=== PATIENT | female | born 1940 | race Caucasian/White ===

== ENCOUNTER 2016-03-23 02:30 | Observation (INO) | payer OTHER, MEDICARE ==
[~2016-03-23] VITALS: Ht 162.6 cm; Wt 117.9 kg
[~2016-03-23 02:30] MED LIST: AUGMENTIN 875-1 EACH PO; LEVEMIR100 UNIT/1 SC; NOVOLOG100 UNIT/2 SC; TYLENOL #31 TAB PO
--- NOTE | 2016-03-23 16:42 | Operative Report ---
Operative/Inv Procedure Report Surgery Date: 03/23/16 Name of Procedure: Laparoscopic cholecystectomy Pre-Operative Diagnosis: Acute cholecystitis with abscess status post percutaneous drainage Post-Operative Diagnosis: Same Estimated Blood Loss: 50ml to 100ml Surgeon/Operations Mgr: AAKASH HOANG,ARIANA Martin/Mateo CM Anesthesia: general endotracheal tube Drains: 15 Estonian Marcos-Hart Specimens: Gallbladder Microbiology: Purulence for culture Operative Indication: 76-year-old woman who presented 2 months ago with pericholecystic abscess status post percutaneous drainage. She now presents for cholecystectomy. Operative/Procedure Note Note: After consent she is brought to the operating room laid supine. Gen. anesthesia was obtained and her abdomen was prepped and draped. The skin above the umbilicus was after local anesthesia transverse incision made sharply. We came down the fascia and grasped with Chaparro's. A fasciotomy created sharply. Stay sutures placed and a blunt Sanchez port was placed. Pneumoperitoneum achieved. 3, 5 mm ports were placed in the epigastrium and right upper quadrant after local anesthesia was instilled and under direct vision the camera. She's placed in reverse Trendelenburg and rotated towards the left. There was an inflammatory tract where the percutaneous drain had been placed previously. He was divided with cautery. Right upper quadrant was still chronically inflamed and the gallbladder was not visible. The liver showed signs of early cirrhosis, likely Brian. There was an inflammatory mass of the liver edge. We presume this was where the gallbladder was. We painstakingly came through dense adhesions with cautery and blunt dissection. Eventually came down to the gallbladder wall. It was able to be grasped. Gently peeled the chronic inflammatory rind around it off. The gallbladder was filled with purulence. There is also an abscess cavity laterally. A specimen sent for culture. After about an hour of dissection were able to get into a less inflamed area. The area where there was an abscess was associated with complete loss of the wall laterally. There is visible large stone. We got down to the infundibulum and the artery was identified medial and its normal anatomic position. It was circumferentially dissected and the better visualize the triangle clipped ligated. We then Ribble to see that the cystic duct was coursing posteriorly folded over on the gallbladder. We developed a plane around it and dissected it. The triangle was then cleared. Once the duct was isolated it was doubly ligated with clips. The gallbladder is removed from the fossa electrocautery. The mid central portion could not be taken off of the liver bed due to severe inflammatory changes there. The remainder the gallbladder was removed. An placed in Endo Catch bag and cinched up. There are multiple stones which were also extracted. The left over mucosa on the back wall was cauterized. Right upper quadrant was and suction irrigated normal saline. I put a 15 Estonian Marcos-Hart drain the lateral port site. It was placed in liver bed and secured to the skin with suture. The ports were removed. In order to deliver the gallbladder the fascial incision to be a lengthened to approximately 3 cm. Passed the specimen off the field. The fascia was closed with a running 0 Vicryl suture. Skin incisions closed with 4-0 Vicryl. Sterile dressings were applied. Sponge and needle counts are correct CC: SADA HOANG,UTE Hassan
--- NOTE | 2016-03-23 19:34 | Admission Core Measures ---
Admission Meds I reviewed the following Meds: Current Medications Sig/Chandu Start time Last Medication Dose Stop Time Status Admin Cefazolin Sodium 2,000 MG ONCE 03/23 0000 NR (Kefzol-Ancef Inj) 03/23 2359 Acute Coronary Syndrome Inclusion Criteria ACS Diagnosis No Inpatient Core Measures LDL Reminder: If No, please order W/I first 24hr of stay Congestive Heart Failure Inclusion Criteria CHF Diagnosis No Cerebrovascular accident Inclusion Criteria CVA/TIA Diagnosis No Inpatient Core Measures Bedside Swallow Eval Reminder: If BSE failed, place ST order Antithrombotic Reminder: Order Antithrombotic Medication by end of day 2 Antithrombotic Reminder: Document Reason Antithrombotic Not ordered by end of day 2 AFIB/Flutter Reminder: If Present, add to problem list AFIB/Flutter Reminder: Order Anticoag Medication for pts with AFIB/Flutter Atherosclerosis Reminder: If Present, add to problem list LDL Reminder: If No, please order W/I first 24hr of stay PT Order Reminder: If No, please order Venous thromboembolism Inpatient Core Measures VTE Risk Factors: Age > 40, Obesity, Surgery VTE Prophylaxis Ordered Inpt Mech & Pharm No Mech VTE prophylaxis d/t No contraindications No VTE Pharm Prophylaxis d/t No contraindications Inclusion Criteria - Per Current guidelines, there needs to be overlap - treatment for the first 5 days of Warfarin therapy. - Parenteral Anticoagulation (IV or SC) needs to be - given along with Warfarin therapy. VTE Diagnosis No VTE Type NONE VTE Confirmed by (Test) NONE Problem List As ranked by this Provider includes Assessment & Plan 1. Cholelithiasis 2. S/P laparoscopic cholecystectomy HOME MEDS Home Med List Insulin Aspart (Novolog) 100 UNIT/ML VIAL 16-20 UNITS SC TIDAC DM (Reported) Insulin Detemir (Levemir) 100 UNIT/ML VIAL 30 UNIT SC QPM DM (Reported)
[2016-03-23 20:30] VITALS: BP 138/72
--- NOTE | 2016-03-23 20:30 | NUR ---
PT ARRIVED TO FLOOR FROM PACU VIA STRETCHER. DAUGHTER AT BEDSIDE. PT DENIES ANY PAIN AT THIS TIME. VSS, NO S/S DISTRESS. ORIENTED TO ROOM AND CALL LIGHT. DEON DRAIN IN PLACE BUT DRESSING COMPLETELY SATRUATED WTIH SEROUSANGUENOUS DRAINAGE. PER TOI MCCORMACK, WHO WAS NOTIFIED, CHANGE AND REINFORCE DRESSING NEEDED. DRESS CHANGED. PT C/O "GURGLING IN MY CHEST", TOI MCCORMACK MADE AWARE. WILL CONTINUE TO MONITOR.
--- NOTE | 2016-03-23 22:27 | PN- General Surgery ---
Subjective Subjective: poc s/p lap maribell no major complaints now denies cp, sob, no n+v with ice chips Objective Vital Signs and I&Os cv: rrr lungs: clear abd: soft drsain site drsg saturated with serous drainage +bs, other drsgs dry ext: warm, distal lcms intact Assessment/Plan Assessment/Plan surgical stable unable to go home tonight due to safety concerns plan 23hr obv iv abx hep sq/alps for dvt prophylaxis pain meds advance diet as perez plan for home d/c angi Core Measures/Miscellaneous Venous Thromboembolism VTE Risk Factors: Age > 40, Obesity, Surgery VTE Contraindications: No Contraindications VTE Prophylaxis Ordered Inpt Mech & Pharm VTE Diagnosis: No VTE Type: NONE VTE Confirmed by (Test): NONE Beta Olivia Is Beta Olivia a Home Med? No Antibiotics Is Patient on Antibiotics? Yes
--- NOTE | 2016-03-23 22:41 | Patient Discharge Instructions ---
Discharge Instructions General Discharge Information You were seen/treated for: cholelithiasis You had these procedures: laparoscopic cholecystectomy Watch for these problems: temp>101.5, increased wound drainage/redness, increased pain No bath, but you may shower: Yes Other wound care: keep wound clean and dry Activity Activity Limited to: Weight bear as tolerated Other activity limits: no strenuous activity Acute Coronary Syndrome Inclusion Criteria At DC or during hospital stay patient has or had the following: ACS DIAGNOSIS No Discharge Core Measures Meds if any: Prescribed or Continued at Discharge Meds if any: NOT Prescribed or Continued at Discharge Congestive Heart Failure Inclusion Criteria At DC or during hospital stay patient has or had the following: CHF DIAGNOSIS No Discharge Core Measures Meds if any: Prescribed or Continued at Discharge Meds if any: NOT Prescribed or Continued at Discharge Cerebrovascular accident Inclusion Criteria At DC or during hospital stay patient has or had the following: CVA/TIA Diagnosis No Discharge Core Measures Meds if any: Prescribed or Continued at Discharge Meds if any: NOT Prescribed or Continued at Discharge Venous thromboembolism Inclusion Criteria VTE Diagnosis No VTE Type NONE VTE Confirmed by (Test) NONE Discharge Core Measures - Per Current guidelines, there needs to be overlap - treatment for the first 5 days of Warfarin therapy. - If discharged on Warfarin prior to 5 days of - overlap therapy, the patient will need to be - assessed for post discharge needs including - *Post discharge parental anticoagulation - *Warfarin and/or parental anticoagulation education - *Follow up date to check INR post discharge At least 5 days overlap therapy as Inpatient No Meds if any: Prescribed or Continued at Discharge Note: Overlap Therapy is Warfarin and Anticoagulant Meds if any: NOT Prescribed or Continued at Discharge
[2016-03-23 22:50] VITALS: BP 166/80
[2016-03-24 00:44] VITALS: BP 160/80
[2016-03-24 02:36] VITALS: BP 160/60
[2016-03-24 04:00] VITALS: BP 160/60
--- NOTE | 2016-03-24 07:35 | PN- General Surgery ---
Subjective Subjective: NAEO. No new c/o. Patient continues to have pain in her right flank near DEON drain. DEON drain remained in place overnight. Tolerating by mouth without nausea vomiting. Has been out of bed and ambulating to bathroom. Voiding. Denies chest pain or shortness of breath. Objective Vital Signs and I&Os Vital Signs Date Time Temp Pulse Resp B/P Pulse O2 O2 Flow FiO2 Ox Delivery Rate 03/24 0400 98.9 93 20 160/60 93 Room Air 03/24 0241 95 Room Air 03/24 0236 99.2 99 20 160/60 98 Nasal 2.0L Cannula 03/24 0044 98.0 98 20 160/80 98 Nasal 2.0L Cannula 03/24 0000 Nasal 2.0L Cannula 03/23 2250 97.8 93 20 166/80 94 Nasal Cannula 03/23 2030 97.5 88 18 138/72 94 Nasal 2.0L Cannula Intake & Output 03/24 0800 03/24 0000 03/23 1600 03/23 0800 03/23 0000 03/22 1600 Intake Total 720 630 Output Total 380 520 Balance 340 110 Intake, IV 600 150 Intake, Oral 120 480 Number 0 Bowel Movements Output, 30 120 Drainage Output, Urine 350 400 Patient 260 lb Weight Physical Exam: General: NAD, comfortable, A&Ox3 Chest: NRD, breathing comfortably in room air. Heart S1S2 normal. Abdomen: soft, nondistended. Appropriately tender to palpation around incisions and DEON drain site. Incisions clean dry and intact. DEON drain in place right upper quadrant with serosanguineous drainage. +Bowel sounds x4 quadrants Ext: No calve swelling/TTP, neurovascularly intact bilateral lower extremities Current Medications: Current Medications Sig/Chandu Start time Last Medication Dose Route Stop Time Status Admin Acetaminophen 1,000 MG .STK-MED ONE 03/23 1400 DC IV 03/23 1401 Cefazolin Sodium 2 GM Q8H 03/23 2230 DC 03/24 N/A 1 UNIT IV 03/24 0659 0529 Cefazolin Sodium 2,000 MG ONCE 03/23 0000 DC IV 03/23 2359 Fentanyl Citrate 250 MCG .STK-MED ONE 03/23 1530 DC IM 03/23 1531 Fentanyl Citrate 250 MCG .STK-MED ONE 03/23 1400 DC IM 03/23 1401 Heparin Sodium 5,000 UNIT Q8 03/23 2199 AC 03/24 (Porcine) SC 0530 Hydromorphone HCl 2 MG .STK-MED ONE 03/23 1935 DC IM 03/23 193 Hydromorphone HCl 2 MG .STK-MED ONE 03/23 1744 DC IM 03/23 174 Hydromorphone HCl 2 MG .STK-MED ONE 03/23 1530 DC IM 03/23 1531 Insulin Aspart 0 TIDAC 03/24 0800 AC SC Insulin Detemir 30 UNITS QPM 03/23 220 AC 03/23 SC 2232 Meperidine HCl 50 MG .STK-MED ONE 03/23 1907 DC IM 03/23 190 Ondansetron HCl 4 MG Q6P PRN 03/23 194 AC IV Oxycodone/ 1 TAB Q4P PRN 03/23 1944 AC 03/24 Acetaminophen PO 0240 Oxycodone/ 2 TAB Q4P PRN 03/23 1944 AC 03/24 Acetaminophen PO 0708 Sodium Chloride 1,000 ML Q13H 03/23 1944 AC 03/23 IV 2151 Assessment/Plan Assessment/Plan 76-year-old female postop day 1 status post laparoscopic cholecystectomy with DEON drain placement. AVSS, patient stable. - Pain control - Diet as tolerated - When necessary Zofran - I/O's - Subcutaneous heparin and Alps for DVT prophylaxis - Out of bed and ambulate - Continue antibiotics - DC home today. Will discuss whether not to DC with the DEON drain with attending - Will discuss plan with attending Core Measures/Miscellaneous Venous Thromboembolism VTE Risk Factors: Age > 40, Obesity, Surgery VTE Contraindications: No Contraindications VTE Prophylaxis Ordered Inpt Mech & Pharm VTE Diagnosis: No VTE Type: NONE VTE Confirmed by (Test): NONE Beta Olivia Is Beta Olivia a Home Med? No Antibiotics Is Patient on Antibiotics? Yes
[2016-03-24] MEDS ORDERED: PERCOCET 5-3251 EACH PO (07:55)
[2016-03-24 08:54] LABS: ABSOLUTE BASOPHIL COUNT 0 /CUMM (0.0-0.2); ABSOLUTE EOSINOPHIL COUNT 0 /CUMM (0.0-0.7); ABSOLUTE GRANULOCYTE CT 23.5 /CUMM (1.4-6.5); ABSOLUTE LYMPH COUNT 1.1 /CUMM (1.2-3.4); ABSOLUTE MONOCYTE COUNT 0.7 /CUMM (0.10-0.60); BASOPHIL % 0.1 % (0.0-2.0); EOSINOPHIL % 0.1 % (0-5); GRANULOCYTE % 92.5 % (42.2-75.2); MEAN CORPUSCULAR HGB CONC 32.9 G/DL (33.0-37.0); MEAN CORPUSCULAR VOLUME 81.9 FL (81.0-99.0); MEAN PLATELET VOLUME 9.2 FL (7.4-10.4); PLATELET COUNT 228 /CUMM (130-400); RBC DISTRIBUTION WIDTH 15.5 % (11.5-14.5); RED BLOOD CELL CT 4.65 /CUMM (4.20-5.40); WHITE BLOOD CELL COUNT 25.4 /CUMM (4.8-10.8)
[2016-03-24 11:26] VITALS: BP 120/80
--- NOTE | 2016-03-24 11:51 | PN- General Surgery ---
Surgical Brief Attending Note Brief Attending Note: doing well. leukocytosis due to stress. cultures from OR without growth. Tolerating diet. D/c drain, fluids and abx. ready for discharge pending social issues with living alone.
== END 2016-03-24 16:00 | disposition home health service (06) ==
LOC: ENRESERVTM → ENRESERVDT → STS 02:30 → PACUH 16:40 → 2NA 18:58 → ENPENDDIS 18:58 → 2NA 21:00
PROVIDERS: Physician Assistant; ADMIT Surgery
DX: K81.0 Acute cholecystitis (principal); E11.319 Type 2 diabetes mellitus with unspecified diabetic retinopathy without macular edema; Z79.4 Long term (current) use of insulin; I10 Essential (primary) hypertension
CPT/HCPCS: 1328; 1425; 1530; 1748; 6030; 87070; 87075; 82436; 87071; 87147; 88304; 88305; 96372; G0378; J0131; J0690; J1644

== ENCOUNTER 2016-03-25 15:15 | Inpatient (IN) | payer OTHER, MEDICARE ==
[~2016-03-25] VITALS: Ht 160 cm; Wt 112.9 kg
[~2016-03-25 15:15] MED LIST changes: +PERCOCET 5-3251 EACH PO
--- NOTE | 2016-03-25 15:20 | NUR ---
BIBA FOR WEAKNESS AND RECTAL BLEEDING. PT DISCHARGED FROM [place] YESTERDAY S/P JOSE JUAN VERA. HAD PLANNED VISITING NURSE VISIT TODAY. VISITING NURSE ARRIVED THIS AFTERNOON. NO ANSWER AT DOOR. DTR UNABLE TO REACH PT ON PHONE. POLICE/EMS CALLED. FORCED ENTRY WAS DONE INTO HOME. PT FOUND ON TOILET, UNABLE TO GET UP ON HER OWN. SOME BLOOD NOTED IN TOILET. UPON ARRIVAL PT ALERT AND ORIENTED X3. IN NO OVERT DISTRESS. PT NOT ABLE TO DESCRIBE EVENTS LEADING UP TO EMS/POLICE ENTERING INTO HOME. PT REFUSING TO ALLOW US TO CARE FOR HER. "I WANT TO GO HOME" STATES SHE IS VERY ANGRY THAT HER DOOR WAS BROKEN DOWN. "THEY DRAGGED ME OFF TOILET". NOTED TO HAVE BRIGHT RED BLOOD ON PANTS. PT WILL NOT ALLOW EXAM
--- NOTE | 2016-03-25 15:34 | ED GENERAL ADULT ---
See Addendum History of Present Illness General Chief Complaint: General Adult Stated Complaint: BIBA FOR RECTAL BLEEDING Source: patient, EMS Exam Limitations: physical impairment Vital Signs & Intake/Output Vital Signs & Intake/Output Vital Signs Date Time Temp Pulse Resp B/P Pulse O2 O2 Flow FiO2 Ox Delivery Rate 03/26 0846 88 18 125/59 99 Room Air 03/25 2055 96.5 95 16 143/64 98 Room Air 03/25 1700 Room Air 03/25 1634 98.0 105 18 170/81 98 Room Air 03/25 1520 110 18 134/99 99 Room Air ED Intake and Output 03/26 0000 03/25 1200 Intake Total 150 Output Total Balance 150 Intake, Oral 150 Allergies Coded Allergies: NO KNOWN ALLERGIES (10/14/15) Reconcile Medications Insulin Aspart (Novolog) 100 UNIT/ML VIAL 16-20 UNITS SC TIDAC DM (Reported) Insulin Detemir (Levemir) 100 UNIT/ML VIAL 30 UNIT SC QPM DM (Reported) Oxycodone HCl/Acetaminophen (Percocet 5-325 MG Tablet) 5 MG-325 MG TABLET 1-2 TAB PO Q4-6 PRN PAIN Triage Nurses Notes Reviewed? yes Onset: Abrupt Duration: day(s): Timing: recent history HPI: 03/25/16 5 PM 76-year-old female presents to the emergency department complaining of I was unable to get up off the toilet and I didn't want to be brought here. The patient states that she was discharged yesterday after a laparoscopic cholecystectomy. She said she went home with home care; the Homecare financial services sales representative was unable to get in today. The patient was on the toilet today and was unable to make it when the doorbell rang. EMS was called when she didn' t answer her phone and they broke down her door and brought her to the emergency department. The patient states she did not want to come. They said they noted some blood in the toilet; the patient is refusing blood work and rectal exam at this time. (RIGO FLYNN DO) Past History Travel History Traveled to [place] past 21 day No Medical History Any Pertinent Medical History? see below for history Neurological: NONE EENT: NONE Cardiovascular: NONE Respiratory: NONE Gastrointestinal: NONE Hepatic: NONE Renal: NONE Musculoskeletal: spinal stenosis Psychiatric: NONE Endocrine: diabetes, obesity Blood Disorders: NONE Cancer(s): NONE DENTURE PROCESSOR/Reproductive: NONE History of MRSA: Yes History of VRE: No History of CDIFF: No Influenza Vaccine: 12/22/15 Surgical History Surgical History: none Psychosocial History What is your primary language Chinese Family History Hx Contributory? No (RIGO FLYNN DO) Review of Systems Review of Systems Constitutional: Denies: fever. EENTM: Reports: no symptoms. Respiratory: Denies: short of breath. Cardiovascular: Denies: chest pain. GI: Denies: abdominal pain. Genitourinary: Reports: no symptoms. Musculoskeletal: Reports: back pain. Skin: Denies: rash. Neurological/Psychological: Reports: no symptoms. Hematologic/Endocrine: Reports: no symptoms. (RIGO FLYNN DO) Physical Exam Physical Exam General Appearance: alert, awake, anxious, mild distress Head: atraumatic, normal appearance Eyes: Bilateral: normal appearance, PERRL, EOMI. Ears, Nose, Throat: normal pharynx Neck: normal inspection, supple, limited range of motion Respiratory: no respiratory distress Cardiovascular: regular rate/rhythm Peripheral Pulses: 4+ radial (R), 4+ radial (L) Gastrointestinal: soft, non-tender Rectal: heme positive stool, rectal prolase Back: decreased range of motion Extremities: pedal edema Neurologic/Psych: awake, alert, oriented x 3 Skin: ulceration right gluteal fold Comments: The patient has rectal prolapse with a blood clot. Core Measures ACS in differential dx? No CVA/TIA Diagnosis: No Severe Sepsis Present: No Septic Shock Present: No (RIGO FLYNN DO) Progress Differential Diagnoses I considered the following diagnoses in my evaluation of the patient: [Rectal prolapse, intra-abdominal abscess, opioid-induced gait disturbance, exacerbation of spinal stenosis] Plan of Care: Orders Procedure Date/time Status Heart Healthy Diet 03/26 B Active Vital Signs 03/26 1013 Active Code Status 03/26 1013 Active Admit to inpatient 03/26 1005 Active PT Evaluate & Treat 03/26 0744 Active Theraputic Activities 15 Min 03/26 UNK Complete MOBILITY GOAL STATUS 03/26 UNK Complete MOBILITY CURRENT STATUS 03/26 UNK Complete PT EVAL MOD COMPLEX 30 MIN 03/26 UNK Complete URINALYSIS 03/25 2148 Active FingerStick- Glucose 03/25 2056 Active Patient Data 03/25 1855 Active PROTHROMBIN TIME 03/25 171 Complete COMPREHENSIVE METABOLIC PANEL 03/25 171 Complete CBC WITHOUT DIFFERENTIAL 03/25 171 Complete Intake & Output 03/25 1700 Active Laboratory Tests 03/25/16 1800: Anion Gap 10, Estimated GFR > 60, BUN/Creatinine Ratio 22.9, Glucose 274 H, Calcium 8.6, Total Bilirubin 0.8, AST 44 H, ALT 32, Alkaline Phosphatase 154 H , Total Protein 5.8 L, Albumin 3.0 L, Globulin 2.8, Albumin/Globulin Ratio 1.1 , PT 14.0 H, INR 1.34 H, CBC w Diff MAN DIFF ORDERED, RBC 4.94, MCV 82.1, MCH 26.6 L, RDW 15.5 H, MPV 8.4, Gran % 89.6 H, Lymphocytes % 5.3 L, Monocytes % 4.8, Eosinophils % 0.1, Basophils % 0.2, Absolute Granulocytes 16.5 H, Segmented Neutrophils 86 H, Absolute Lymphocytes 1.0 L, Lymphocytes 8 L, Monocytes 6, Absolute Monocytes 0.9 H, Absolute Eosinophils 0, Absolute Basophils 0, Platelet Estimate VERIFIED BY SMEAR, Normocytic RBCs VERIFIED, Normochromic RBCs VERIFIED, PUBS MCHC 32.5 L, Fld Total RBCs Counted 100 Seen by Physical therapy, will need placement in short term rehab... 9:53 AM Discussed with case management. Patient will require 3 night stay for short- term rehabilitation placement. (ROSY BOOGIE MD) Initial ED EKG: none (RIGO FLYNN DO) Differential Diagnoses I considered the following diagnoses in my evaluation of the patient: Hand-Off Endorsed To: ROSY BOOGIE MD Endorsed Time: 0700 Pending: consult (DANUTA HOANG,KENDRICK Rogers) Differential Diagnoses I considered the following diagnoses in my evaluation of the patient: (ROSY BOOGIE MD) Departure Departure Disposition: STILL A PATIENT Condition: Stable Clinical Impression Primary Impression: Rectal bleeding Secondary Impressions: Spinal stenosis Referrals: SADA HOANG,UTE Hassan (PCP/Family) Departure Forms: Customer Survey General Discharge Information Comments 03/25/16 7:30 PM The patient was signed out to Dr. Mccloud. She is for reevaluation. PT in the a.m. repeat CBC in the a.m., follow labs. (RIGO FLYNN DO) Departure Time of Disposition: 951 Admission Note Spoke With: GORDO HOANG,BRYSON Documentation of Exam: Documentation of any treatments & extenuating circumstances including Concerns Regarding Discharge (functional status, medication knowledge or non-compliance, living conditions, etc.) that warrant an admission rather than observation: [ PHYSICAL THERAPY, PAIN ASSESSMENT, SURGICAL FOLLOW UP, PLACEMENT IN SHORT TERM REHAB] (ROSY BOOGIE MD) Critical Care Note Critical Care Note Critical Care Time: non-applicable (RIGO FLYNN DO) ED Attending Observation Initial Observation Note: I have seen and personally examined SANDOR MIRANDA on 03/25/16 at 1906. I agree with the current emergency department documentation. The disposition (admission or discharge) is uncertain at this time, she needs a period of observation for the following reason(s): [The patient needs a period of observation for serial hemoglobin and hematocrits, PT evaluation in the morning, evaluation of pain control] The ED Nurse caring for this patient has been personally informed as to what the patient is being observed for. (RIGO FLYNN DO) Observation Re-Evaluation: I have reevaluated SANDOR MIRANDA on 03/25/16 at 2234. The physical findings that support the continued need to observe this patient include .... discussed at length with patient and family. Case reviewed with case management. Pt to be re-evaluated by pt/ot and case management in the AM. (DANUTA HOANG,KENDRICK Rogers) Observation Re-Evaluation: I have reevaluated SANDOR MIRANDA on 03/26/16 at 0728. The physical findings that support the continued need to observe this patient include [pending case management, placement]. Observation Discharge: I have reevaluated SANDOR MIRANDA on 03/26/16 at 0951. The patient is: (): Stable for discharge ([X]): To be admitted to Nursing Floor (): To be placed in Observation on Nursing Floor (): For transfer to other facility The patient was being observed for [PENDING PT EVALUATION, CASE MANAGEMENT] As a result of that observation, I have determined [D/W CASE MANAGEMENT, WILL REQUIRE 3 NIGHT STAY FOR REHAB PLACEMENT, UNSAFE FOR DISCHARGE HOME]. (ROSY BOOGIE MD)
--- NOTE | 2016-03-25 15:39 | NUR ---
DTR CALLED TO INQUIRE ABOUT PT STATUS. ASKED DTR TO SPEAK WITH PT AND ENCOURAGE HER TO COOPERATE AND ALLOW CARE. PT ON PHONE WITH DTR AND REMAINS RELUCTANT TO ALLOW CARE
--- NOTE | 2016-03-25 16:33 | NUR ---
PT CONTINUES TO REFUSE WORK UP OR TREATMENT. DR FLYNN IN TO SEE PT
--- NOTE | 2016-03-25 16:59 | NUR ---
DR FLYNN IN TO SEE PT.
--- NOTE | 2016-03-25 17:02 | NUR ---
PT REFUSING FULL EXAM, NOT WILLING TO TURN FOR RECTAL/SKIN EXAM.
--- NOTE | 2016-03-25 17:20 | NUR ---
PT LOGROLLED FOR EXAM BY DR FLYNN. NOTED TO HAVE PROLAPSED RECTUM WITH FRESH BLEEDING, SMALL AMOUNT. ALSO NOTED TO HAVE ULCERATION ON LEFT GLUTEAL CLEFT AREA. AREA OPEN, RED EDGES AND YELLOW TISSUE IN CENTER OF WOUND.
--- NOTE | 2016-03-25 18:04 | NUR ---
LABS SENT (BLUE,SST,LAV,PRUITT, PINK)
[2016-03-25 18:22] LABS: ABSOLUTE BASOPHIL COUNT 0 /CUMM (0.0-0.2); ABSOLUTE EOSINOPHIL COUNT 0 /CUMM (0.0-0.7); ABSOLUTE GRANULOCYTE CT 16.5 /CUMM (1.4-6.5); ABSOLUTE MONOCYTE COUNT 0.9 /CUMM (0.10-0.60); BASOPHIL % 0.2 % (0.0-2.0); EOSINOPHIL % 0.1 % (0-5); GRANULOCYTE % 89.6 % (42.2-75.2); HEMATOCRIT 40.5 % (37-47); MEAN CORPUSCULAR HGB 26.6 PG (27.0-31.0); MEAN CORPUSCULAR HGB CONC 32.5 G/DL (33.0-37.0); MEAN CORPUSCULAR VOLUME 82.1 FL (81.0-99.0); MEAN PLATELET VOLUME 8.4 FL (7.4-10.4); PLATELET COUNT 241 /CUMM (130-400); RBC DISTRIBUTION WIDTH 15.5 % (11.5-14.5); RED BLOOD CELL CT 4.94 /CUMM (4.20-5.40); WHITE BLOOD CELL COUNT 18.4 /CUMM (4.8-10.8)
--- NOTE | 2016-03-25 18:24 | NUR ---
LEFT GLUTEAL CLEFT WOUND MEASURES 4.75CM BY 2 CM WIDE
--- NOTE | 2016-03-25 18:32 | NUR ---
[facility] CONTACT NUMBER I [phone], RUBENS
--- NOTE | 2016-03-25 18:49 | NUR ---
PT AMBULATED WITH ASSIST TO BATHROOM. REQUIRED TWO PERSON ASSIST TO GO FROM LAYING TO SITTING ON STRETCHER. REQUIRED 1 PERSON ASSIST TO AMBULATE INTO BATHROOM, UNSTEADY GAIT. ONE PERSON ASSIST TO SIT DOWN ON COMMODE.
--- NOTE | 2016-03-25 19:08 | NUR ---
PT REMAINS IN BATHROOM. STATES SHE NEEDS A FEW MORE MINUTES AND WILL BE READY TO GO BACK TO BED
--- NOTE | 2016-03-25 19:35 | NUR ---
PT UNABLE TO STAND UP OFF OF COMMODE. PT ADAMANTLY REFUSING ASSIST OFF OF TOILET. PT GIVEN OVER 15 MINUTES TO TRY TO STAND UP ON HER OWN. PT THEN REQUIRED ASSIST OF 2 TO STAND UP. PT REFUSING OFFER OF JULISA CARE. PT INSISTING SHE CAN CARE FOR HERSELF BUT UNABLE TO DO SO. VERY UNSTEADY GAIT, ALMOST FELL WHILE STANDING AT SINK IN BATHROOM.
--- NOTE | 2016-03-25 20:55 | NUR ---
PT SLEEPING. AWOKEN FOR VITALS. NEPHEW IN TO VISIT. GLUCOSE CHECK DONE AND IS 272.
--- NOTE | 2016-03-25 22:02 | NUR ---
PT ASSISTED BACK AND FORTH TO BATHROOM. CONTRACTED WITH PT THAT IF WE ASSIST HER IN GETTING UP SHE NEEDS TO ALLOW US TO HELP HER TO PREVENT FALLS AND PROMOTE SAFETY. PT ASSISTED TO BATHROOM BUT AGAIN TRIED TO REFUSE HELP IN GETTING UP. PT UNABLE TO GET UP OFF TOILET. PT ASSISTED TO BED. PT CURRENTLY SITTING ONE EDGE OF BED, REFUSING TO LET US ASSIST HER IN GETTING BACK IN BED.
--- NOTE | 2016-03-25 22:05 | NUR ---
PT GIVEN BOX DINNER AND REFUSED TO EAT IT. STATES SHE DOES NOT EAT HAM OR FISH AND BOX DINNER IS HAM. SUPERVISER NOTIFIED TO SEE IF THERE IS ALTERNATIVE FOOD FOR PT TO EAT
--- NOTE | 2016-03-25 22:06 | NUR ---
[facility] EXCHANGED FOR A BED WHEN PT IN BATHROOM. DTR NOW AT BEDSIDE AND DR TIPTON IN TO GIVE THEM AN UPDATE ON PT STATUS
--- NOTE | 2016-03-25 22:22 | NUR ---
PT GIVEN GRILLED CHICKEN AND SALAD TO EAT WITH DIET PEACE JAMEL. REMAINS SITTING ON EDGE OF BED
--- NOTE | 2016-03-25 23:00 | NUR ---
PT REMAINS ON EDGE OF BED. REFUSING TO ALLOW US TO ASSIST HER BACK INTO BED. TV CHANNEL ADJUSTED PER PT REQUEST
--- NOTE | 2016-03-26 02:52 | NUR ---
PT REQUESTING TO USE RESTROOM. COMMODE OFFERED TO PT. PT REFUSING TO USE COMMODE. PT ASSISTED TO SITTING POSITION ON BED. PT EDUCATED THAT A COMMODE IS MUCH MORE SAFE FOR HER TO USE AT THIS TIME SINCE SHE IS UNSTEADY ON HER FEET. PT CONTINUES TO REFUSE COMMODE. PT PUSHES HER WAY OFF OF THE BED WITH MULTIPLE ATTEMPTS. PT TO RESTROOM AND ON TOILET WITH ASSISTANCE. PT WAS OFFERED ASISTANCE TO GET UP OFF OF THE TOILET, PT CONTINUALLY STATES "GO AWAY, I CAN DO IT MYSELF." PT INSTRUCTED TO PUSH CALL BENSON ONCE SHE IS READY TO GET OFF OF THE TOILET. WILL CONTINUE TO MONITOR PT.
--- NOTE | 2016-03-26 07:32 | NUR ---
IN BR PT VERY DIFFICULT TO ACCEPT HELP. SPENDS LONG PERIODS OF TIME IN BR BUT DOES NOT WANT ANY HELP. UNABLE TO FULLY GET SELF OFF TOILET WITH GRAB BAR.
--- NOTE | 2016-03-26 08:24 | NUR ---
PT VERY RESISTIVE TO ASSISTANCE, MUCH DIFFICULTY PERFORMING ADL'S BUT INSISTANT ON DOING IT. PT NOTED WITH BLISTERED AREA TO RT POSTERIOR LEG BY BUTT. PT WAS ON TOILET AT HOME FOR UNKNOWN LENGTH OF TIME BEFORE EMS GAINED ENTRY. PT UNWILLING TO ALLOW STAFF TO FULLY EVALUATE BLISTER. PT WITH SCANT AMT OF BLOOD IN TOILET PT WITH KNOWN PROLAPSE, PT STATES NO MORE BLOOD THAN USUAL. PT WITH WALKER AND PT TO BED UNABLE TO GET LEGS INTO BED. PT BILAT LOWER EXTREMIITES LARGE AND SWOLLEN. PER NORM. WILL DISCUSS WITH MD, AWAIT CONTINUING CARE THIS AM/. PT AT THIS TIME REFUSES REHAB.
--- NOTE | 2016-03-26 11:59 | NUR ---
REPORT TO DALTON.
--- NOTE | 2016-03-26 12:01 | NUR ---
DISTRIBUTION CONTACTED. MESSAGE LEFT.
--- NOTE | 2016-03-26 12:11 | History & Physical ---
ANA MANZOSHELL 03/26/16 1210: General Information and HPI MD Statement: I have seen and personally examined SANDOR MIRANDA and documented this H&P. The patient is a 76 year old F who presented with a patient stated chief complaint of [ weakness]. Source of Information: patient, old records Exam Limitations: no limitations, confusion History of Present Illness: Patient is a 76-year-old female with past medical history of laparoscopic cholecystectomy ,IDDM, cellulitis, spinal stenosis who was brought in from home by ambulance due to weakness, fatigue and inability to ambulate. Patient had a laparoscopic cholecystectomy by Dr. Velasco on 03/23/2016 and was discharged home a day later after the procedure. She was feeling very weak and lethargic after going home. She denied any fever, chills, nausea, vomiting, abdominal pain, chest pain, palpitations, diarrhea or constipation, urinary complaints. When her visiting nurse went to see her today, patient did not answer the doorbell. She became concerned and called the EMS. Patient did not answer her phone when EMS called her, and therefore they broke down her door to get inside the house. Patient was found sitting on the toilet seat unable to get up and reach the door. She denied any loss of consciousness, falls or any other complaints. She did not want to come to the hospital but on her children' s insistence(who live in [place]) she came for evaluation. EMS reported they noted some blood in the toilet; however the patient is refusing blood work and rectal exam at this time. At baseline, patient is independent in her activities and does not use a cane or a walker. She has chronic cellulitis of bilateral feet however feels comfortable and has no problems ambulating. Vitals in the ED showed a temperature of 98, pulse of 105, respiration 18, blood pressure 170/81, saturating 99% on room air. Labs showed a white count of 18.4, H&H 13.2 /40.5, normal electrolytes, AST 44, ALT 32, alkaline phosphatase 154. Allergies/Medications Allergies: Coded Allergies: NO KNOWN ALLERGIES (10/14/15) Home Med list Insulin Aspart (Novolog) 100 UNIT/ML VIAL 16-20 UNITS SC TIDAC DM (Reported) Insulin Detemir (Levemir) 100 UNIT/ML VIAL 30 UNIT SC QPM DM (Reported) Oxycodone HCl/Acetaminophen (Percocet 5-325 MG Tablet) 5 MG-325 MG TABLET 1-2 TAB PO Q4-6 PRN PAIN Past History Travel History Traveled to [place] past 21 day No Medical History Neurological: NONE EENT: NONE Cardiovascular: NONE Respiratory: NONE Gastrointestinal: NONE Hepatic: NONE Renal: NONE Musculoskeletal: spinal stenosis Psychiatric: NONE Endocrine: diabetes, obesity Blood Disorders: NONE Cancer(s): NONE FIRE INFORMATION OFFICER/Reproductive: NONE History of MRSA: Yes History of VRE: No History of CDIFF: No Influenza Vaccine: 12/22/15 Surgical History Surgical History: none Review of Systems Review of Systems Constitutional: Reports: malaise, weakness. EENTM: Reports: no symptoms. Cardiovascular: Reports: no symptoms. Respiratory: Reports: no symptoms. GI: Reports: no symptoms. Genitourinary: Reports: no symptoms. Musculoskeletal: Reports: muscle pain, muscle stiffness. Skin: Reports: no symptoms. Neurological/Psychological: Reports: confusion. Exam & Diagnostic Data Last 24 Hrs of Vital Signs/I&O Vital Signs Date Time Temp Pulse Resp B/P Pulse O2 O2 Flow FiO2 Ox Delivery Rate 03/26 0846 88 18 125/59 99 Room Air 03/25 2055 96.5 95 16 143/64 98 Room Air 03/25 1700 Room Air 03/25 1634 98.0 105 18 170/81 98 Room Air 03/25 1520 110 18 134/99 99 Room Air Intake & Output 03/26 1600 02/04 0800 02/04 0000 Intake Total 150 Output Total Balance 150 Intake, Oral 150 Patient 113.398 kg Weight Physical Exam General Appearance Alert, Oriented X3, Cooperative, Moderate Distress Skin laparoscopic scar healing well, chronic cellulitis with venous stasis changes in bilateral lower extremities HEENT Atraumatic, PERRLA, EOMI Neck Supple, No JVD Lymphatic Cervical nl Cardiovascular Regular Rate, Normal S1, Normal S2 Lungs Clear to Auscultation, Normal Air Movement Abdomen Normal Bowel Sounds, Soft, No Tenderness, Hanson is negative Neurological Normal Tone Extremities No Clubbing, No Cyanosis, 1+ pitting edema bilateral lower extremities L>R Chronic cellulitis and venous stasis changes Last 24 Hrs of Labs/Jax: Laboratory Tests 03/25/16 1800: Anion Gap 10, Estimated GFR > 60, BUN/Creatinine Ratio 22.9, Glucose 274 H, Calcium 8.6, Total Bilirubin 0.8, AST 44 H, ALT 32, Alkaline Phosphatase 154 H , Total Protein 5.8 L, Albumin 3.0 L, Globulin 2.8, Albumin/Globulin Ratio 1.1 , PT 14.0 H, INR 1.34 H, CBC w Diff MAN DIFF ORDERED, RBC 4.94, MCV 82.1, MCH 26.6 L, RDW 15.5 H, MPV 8.4, Gran % 89.6 H, Lymphocytes % 5.3 L, Monocytes % 4.8, Eosinophils % 0.1, Basophils % 0.2, Absolute Granulocytes 16.5 H, Segmented Neutrophils 86 H, Absolute Lymphocytes 1.0 L, Lymphocytes 8 L, Monocytes 6, Absolute Monocytes 0.9 H, Absolute Eosinophils 0, Absolute Basophils 0, Platelet Estimate VERIFIED BY SMEAR, Normocytic RBCs VERIFIED, Normochromic RBCs VERIFIED, PUBS MCHC 32.5 L, Fld Total RBCs Counted 100 Assessment/Plan Assessment: Patient is a 76-year-old female with past medical history of laparoscopic cholecystectomy ,IDDM, cellulitis, spinal stenosis who was brought in from home by ambulance due to weakness, fatigue and inability to ambulate.Patient had a laparoscopic cholecystectomy by Dr. Velasco on 03/23/2016 and was discharged home a day later after the procedure. She was feeling very weak and lethargic after going home. At baseline, patient is independent in her activities and does not use a cane or a walker. She has chronic cellulitis of bilateral feet however feels comfortable and has no problems ambulating. Vitals in the ED showed a temperature of 96.5, pulse 95, respiration 18, blood pressure 170/81, saturating 99% on room air. Labs showed a white count of 18.4, H&H 13.2 /40.5, normal electrolytes, AST 44, ALT 32, alkaline phosphatase 154. Plan: Physical Deconditioning, weakness and fatigue post cholecystectomy: No signs of infection at this point. Patient doesn't complain of any pain. * Admit to [facility] * Vitals every shift * Gentle hydration with IV normal saline at 75 mL an hour * Trend white count and watch off antibiotics * Elevated LFTs and alkaline phosphatase likely secondary to biliary intervention * Physical therapy evaluation * Diabetic diet * 3 times a day Accu-Cheks * Continue NovoLog sliding scale and 15 units of Levemir QPM * Consider wound care evaluation for bilateral lower extremity cellulitis * Safe discharge planning to [facility] DVT prophylaxis subcutaneous Lovenox Mild pain pathway Diabetic diet Full code for now(has a living will, patient would ask her daughter to bring a copy of it tomorrow) As Ranked By This Provider Problem List: 1. S/P laparoscopic cholecystectomy 2. Spinal stenosis 3. IDDM (insulin dependent diabetes mellitus) Core Measures/Miscellaneous Acute Coronary Syndrome ACS Diagnosis: No Cerebrovascular Accident CVA/TIA Diagnosis: No Congestive Heart Failure CHF Diagnosis: No Venous Thromboembolism VTE Risk Factors: Age > 40, Obesity VTE Prophylaxis Ordered Inpt: Pharm- Lovenox No Mech VTE prophylaxis d/t: No contraindications No VTE Pharm Prophylaxis d/t: No contraindications VTE Diagnosis: No VTE Type: NONE VTE Confirmed by (Test): NONE Severe Sepsis Severe Sepsis Present: No Septic Shock Septic Shock Present: No Miscellaneous Documentation Attending Case Discussed With: BRYSON CARO MD Primary Care Physician: UTE TOMLIN MD Patient sees these Specialists dr velasco Level of Patient Care: General Medicine BRYSON CARO MD 03/26/16 1859: Attending MD Review Statement Attending Statement Attending MD Statement: examined this patient, discuss w/resident/PA/ELECTRIC BLASTING CAP ASSEMBLER, agreed w/resident/PA/ELECTRIC BLASTING CAP ASSEMBLER, reviewed EMR data (avail), discussed with nursing, reviewed images, amended to note Attending Assessment/Plan: 76 y/o F with pmh sig for recent lap maribell with dr. Velasco on 03/23/16, diabetes, obesity and spinal stenosis who was discharged a day after her surgery to home. Pt having difficulty with ambulation, going to toilet and doing routine things at home 2/2 to deconditioning. Her duaghter called today and when she arranged to send EMS who entered her house after breakning the door as she could not open the door. She is very upset about the door now broken. She DEnies any abd pain, n/v. She has ch back pain. She does have leukocytosis from yesterday. She thinks percocet might have made her little loopy. Vital Signs Date Time Temp Pulse Resp B/P Pulse O2 O2 Flow FiO2 Ox Delivery Rate 03/26 1400 Room Air 03/26 1323 97.5 84 20 122/60 99 Room Air 03/26 0846 88 18 125/59 99 Room Air 03/25 2054 96.5 95 16 143/64 98 Room Air on exam; aox3, nad. cv; s1,s2, rrr. resp; clear. abd; soft, nt, bs+, scar hopkins from lap maribell are healing well. ext; trace edema. no labs today. A/P;76 y/o F with pmh sig for recent lap maribell with dr. Velasco on 03/23/16, diabetes , obesity and spinal stenosis now admitted with decontioning, unable to ambulate. Pt will be admitted to medicine floor. Please check labs CBC, BEP. Confirm and continue home meds. Avoid narcotics. Pharmacologic DVtt px. Full. code. I notified Dr. Velasco.
--- NOTE | 2016-03-26 12:30 | NUR ---
PER DISTRIBUTION 25 MINUTES.
[2016-03-26 13:23] VITALS: BP 122/60
--- NOTE | 2016-03-26 13:30 | NUR ---
RECEIVED FROM ER: A 76 YEAR OLD FEMALE ADMITTED FOR RECTAL BLEEDING AND WEAKNESS. SETTLED PATIENT INTO ROOM. ALERT ORIENTED X3. VSS. NOTED OPEN BLISTER TO RIGHT BUTTOCK WITH ECCHYMOTIC AREA. SEE WOUND MAN. REVIEWED POC WITH PATIENT. CALL B[facility]SON IN REACH. SEE NURSING ASSESSMENT FLOWSHEETS FOR FURTHER DOCUMENTATION.
--- NOTE | 2016-03-26 18:48 | Admission Certification ---
Admission Certification Certification Statement - As attending physician, I certify that at the time of - admission, based on clinical presentation, severity of - symptoms, need for further diagnostic testing and - therapeutic interventions, and risk of adverse outcomes - without in-hospital treatment, in my clinical assessment, - this patient requires an acute hospital stay for a minimum - of two nights or longer. I have also considered psychsocial - factors such as support system, advanced age, financial - issues, cognitive issues, and failed out-patient treatments, - past re-admission history, safety of patient, and lack of - compliance as applicable. Specific rationale supporting this admission is: Elderly F admitted with difficulty ambulating with recent post op status. Needs PT. Also has lekocytosis which needs evaluation.
[2016-03-26 23:08] VITALS: BP 154/66
[2016-03-27 06:58] VITALS: BP 130/62
--- NOTE | 2016-03-27 08:52 | PN- Housestaff ---
[facility]852: Subjective Follow-up For: Deconditioning, weakness and fatigue Complaints: weakness, constipation Subjective: Patient is feeling a little better than yesterday. Still complains of weakness and fatigue. Has been walking to the bathroom by herself. Reports constipation. Has tried to move her bowels 7-8 times with no result. A suppository has been ordered for her. Denies any chest pain, palpitations, abdominal pain, nausea, vomiting, urinary symptoms. Review of Systems Constitutional: Reports: malaise, weakness. EENTM: Reports: no symptoms. Cardiovascular: Reports: no symptoms. Respiratory: Reports: no symptoms. Gastrointestinal: Reports: constipation. Genitourinary: Reports: no symptoms. Musculoskeletal: Reports: muscle pain, muscle stiffness. Skin: Reports: no symptoms. Objective Last 24 Hrs of Vital Signs/I&O Vital Signs Date Time Temp Pulse Resp B/P Pulse O2 O2 Flow FiO2 Ox Delivery Rate 03/27 0658 97.7 64 20 130/62 97 Room Air 03/26 2308 97.7 94 20 154/66 96 Room Air 03/26 1400 Room Air 03/26 1323 97.5 84 20 122/60 99 Room Air Intake & Output 03/27 1600 03/27 0800 03/27 0000 Intake Total 450 460 Output Total 600 Balance 450 -140 Intake, IV 300 Intake, Oral 450 160 Output, Urine 600 Physical Exam General Appearance: Alert, Oriented X3, Cooperative, Mild Distress Skin: No Rashes, No Breakdown, chronic cellulitis with venous stasis changes in bilateral lower extremities, laparoscopy scar is in the midline HEENT: Atraumatic, PERRLA, EOMI Neck: Supple, No JVD Lymphatic: Cervical nl Cardiovascular: Regular Rate, Normal S1, Normal S2, No Murmurs Lungs: Clear to Auscultation, Normal Air Movement Abdomen: Normal Bowel Sounds, Soft, No Tenderness, laparoscopic scar in midline Neurological: Normal Speech, Normal Tone, Sensation Intact, Cranial Nerves 3-12 NL Extremities: No Clubbing, No Cyanosis, 1+ edema in lower extremities left more than right. Chronic cellulitis with venous stasis changes Vascular: Normal Pulses Current Medications: Current Medications Sig/Chandu Start time Last Medication Dose Route Stop Time Status Admin Bisacodyl 10 MG ONCE ONE 03/27 1045 UNVr OK 03/27 1046 Enoxaparin Sodium 40 MG DAILY 03/26 1019 AC SC Ibuprofen 400 MG 4 TIMES/DAY PRN 03/26 1030 AC PO Insulin Aspart 0 TIDAC 03/26 1200 AC 03/27 SC 0900 Insulin Aspart 0 TIDAC 03/26 0800 DC 03/26 SC 0823 Insulin Detemir 15 UNITS QPM 03/26 2200 AC 03/26 SC 2154 Insulin Detemir 30 UNITS QPM 03/25 2200 DC 03/25 SC 2226 Magnesium Hydroxide 30 ML ONE ONE 03/27 0045 DC PO 03/27 0046 Oxycodone/ See Dose Q4-6 PRN 03/26 1100 DC Acetaminophen Insts (1) PO Polyethylene Glycol 17 GM DAILY 03/28 1000 UNVr PO Sodium Chloride 1,000 ML Q13H 03/26 1245 DC 03/26 IV 03/27 0144 1500 Dose Instructions: (1)Oxycodone/Acetaminophen: 1-2 TAB Last 24 Hrs of Lab/Jax Results Last 24 Hrs of Labs/Mics: Laboratory Tests 03/27/16 1030: Total Bilirubin Pending, Direct Bilirubin Pending, AST Pending, ALT Pending, Alkaline Phosphatase Pending, Total Protein Pending, Albumin Pending, CBC w Diff Pending, WBC Pending, RBC Pending, Hgb Pending, Hct Pending, MCV Pending, MCH Pending, RDW Pending, Plt Count Pending, MPV Pending, PUBS MCHC Pending 03/26/16 2100: Urinalysis LIGHT H, Urine Color YEL, Urine Clarity HAZY H, Urine pH 6.0, Ur Specific [place] 1.025, Urine Protein TRACE H, Urine Ketones TRACE H, Urine Nitrite NEG, Urine Bilirubin NEG, Urine Urobilinogen 0.2, Ur Leukocyte Esterase TRACE H, Ur Microscopic SEDIMENT EXAMINED, Urine RBC 15-25 H, Urine WBC 3-5 H , Ur Epithelial Cells MANY H, Urine Crystals 1+ CA OX H, Urine Mucus MOD H, Urine Hemoglobin LARGE H, Urine Glucose NEG Assessment/Plan Assessment: Patient is a 76-year-old female with past medical history of laparoscopic cholecystectomy ,IDDM, cellulitis, spinal stenosis who was brought in from home by ambulance due to weakness, fatigue and inability to ambulate.Patient had a laparoscopic cholecystectomy by Dr. Bob on 03/23/2016 and was discharged home a day later after the procedure. She was feeling very weak and lethargic after going home. At baseline, patient is independent in her activities and does not use a cane or a walker. She has chronic cellulitis of bilateral feet however feels comfortable and has no problems ambulating. Deconditioning, weakness and fatigue post cholecystectomy: No signs of infection at this point. Patient doesn't complain of any pain. * Patient more awake and alert today. Ambulating to the bathroom by herself/ out of bed to the chair * IV fluids have been discontinued. Patient has been eating and drinking well. * Complains of constipation. Dulcolax suppository and bowel regime has been added. * Has been afebrile overnight, morning labs pending. We will continue to watch off antibiotics. * Elevated LFTs and alkaline phosphatase likely secondary to biliary intervention. Repeat labs pending. * Physical therapy working with the patient * Diabetic diet/patient finished her breakfast this a.m. * FSG to 249, 249, 258 the same. We will increase the NovoLog sliding scale to high dose. * Continue 15 units of Levemir QPM/can go up to 30 units if sugars continue to be high(home dose) * Continue 3 times a day Accu-Cheks * Leg elevation for chronic lower extremity cellulitis * Safe discharge planning to [facility] * Dr. Bob has been informed about the admission DVT prophylaxis subcutaneous Lovenox Mild pain pathway Diabetic diet Full code for now(has a living will, patient would ask her daughter to bring a copy of it tomorrow) Problem List: 1. S/P laparoscopic cholecystectomy 2. IDDM (insulin dependent diabetes mellitus) 3. Spinal stenosis Pain Ratin Pain Location: na Pain Goal: Remain pain free Pain Plan: prn tylenol Tomorrow's Labs & Rationales: cbc.. white count GORDO HOANG,BRYSON 03/27/16 1322: Attending MD Review Statement Attending Statement Attending MD Statement: examined this patient, discuss w/resident/PA/ART TEACHER, agreed w/resident/PA/ART TEACHER, reviewed EMR data (avail), discussed with nursing, discussed with case mgmt, reviewed images, amended to note Attending Assessment/Plan: Patient seen and examined, complained of constipation but otherwise denies any other complaints. Vital Signs Date Time Temp Pulse Resp B/P Pulse O2 O2 Flow FiO2 Ox Delivery Rate 03/27 0658 97.7 64 20 130/62 97 Room Air 03/26 2308 97.7 94 20 154/66 96 Room Air 03/26 1400 Room Air on exam; aox3, nad. cv; s1,s2, rrr. resp; clear. abd; soft, nt, bs+, scar hopkins from lap maribell are healing well. ext; trace edema. Laboratory Tests 03/27 03/26 1030 2100 Chemistry Total Bilirubin (0.2 - 1.3 mg/dL) 0.9 Direct Bilirubin (< 0.4 mg/dL) 0.6 H AST (14 - 36 U/L) 38 H ALT (9 - 52 U/L) 30 Alkaline Phosphatase (<127 U/L) 179 H Total Protein (6.3 - 8.2 g/dL) 5.6 L Albumin (3.5 - 5.0 g/dL) 2.9 L Hematology CBC w Diff NO MAN DIFF REQ WBC (4.8 - 10.8 /CUMM) 10.9 H RBC (4.20 - 5.40 /CUMM) 4.80 Hgb (12.0 - 16.0 G/DL) 12.7 Hct (37 - 47 %) 39.2 MCV (81.0 - 99.0 FL) 81.5 MCH (27.0 - 31.0 PG) 26.5 L RDW (11.5 - 14.5 %) 15.9 H Plt Count (130 - 400 /CUMM) 267 MPV (7.4 - 10.4 FL) 8.7 Gran % (42.2 - 75.2 %) 80.5 H Lymphocytes % (20.5 - 51.1 %) 10.6 L Monocytes % (1.7 - 9.3 %) 7.3 Eosinophils % (0 - 5 %) 1.3 Basophils % (0.0 - 2.0 %) 0.3 Absolute Granulocytes (1.4 - 6.5 /CUMM) 8.8 H Absolute Lymphocytes (1.2 - 3.4 /CUMM) 1.1 L Absolute Monocytes (0.10 - 0.60 /CUMM) 0.8 H Absolute Eosinophils (0.0 - 0.7 /CUMM) 0.1 Absolute Basophils (0.0 - 0.2 /CUMM) 0 PUBS MCHC (33.0 - 37.0 G/DL) 32.5 L Urines Urinalysis LIGHT H Urine Color (YEL,AMB,STR) YEL Urine Clarity (CLEAR) HAZY H Urine pH (5.0 - 8.0) 6.0 Ur Specific [place] (1.001 - 1.035) 1.025 Urine Protein (NEG,<30 MG/DL) TRACE H Urine Ketones (NEG) TRACE H Urine Nitrite (NEG) NEG Urine Bilirubin (NEG) NEG Urine Urobilinogen (0.1 - 1.0 EU/dl) 0.2 Ur Leukocyte Esterase (NEG) TRACE H Ur Microscopic SEDIMENT EXAMINED Urine RBC (0 - 5 /HPF) 15-25 H Urine WBC (0 - 2 /HPF) 3-5 H Ur Epithelial Cells (NONE,FEW) MANY H Urine Crystals 1+ CA OX H Urine Mucus (FEW,NONE) MOD H Urine Hemoglobin (NEG) LARGE H Urine Glucose (N MG/DL) NEG A/P; 76 y/o F with pmh sig for recent lap maribell with dr. Bob on 03/23/16, diabetes, obesity and spinal stenosis now admitted with decontioning, unable to ambulate. Patient should be getting aggressive bowel regimen. Continue all other current medications. Pharmacologic DVt px. Patient work with physical therapy. Full. code.
[2016-03-27 11:33] LABS: ABSOLUTE BASOPHIL COUNT 0 /CUMM (0.0-0.2); ABSOLUTE EOSINOPHIL COUNT 0.1 /CUMM (0.0-0.7); ABSOLUTE GRANULOCYTE CT 8.8 /CUMM (1.4-6.5); ABSOLUTE LYMPH COUNT 1.1 /CUMM (1.2-3.4); ABSOLUTE MONOCYTE COUNT 0.8 /CUMM (0.10-0.60); BASOPHIL % 0.3 % (0.0-2.0); EOSINOPHIL % 1.3 % (0-5); GRANULOCYTE % 80.5 % (42.2-75.2); HEMATOCRIT 39.2 % (37-47); MEAN CORPUSCULAR HGB 26.5 PG (27.0-31.0); MEAN CORPUSCULAR HGB CONC 32.5 G/DL (33.0-37.0); MEAN CORPUSCULAR VOLUME 81.5 FL (81.0-99.0); MEAN PLATELET VOLUME 8.7 FL (7.4-10.4); PLATELET COUNT 267 /CUMM (130-400); RBC DISTRIBUTION WIDTH 15.9 % (11.5-14.5); WHITE BLOOD CELL COUNT 10.9 /CUMM (4.8-10.8)
[2016-03-27 14:27] VITALS: BP 112/70
[2016-03-27 22:34] VITALS: BP 116/60
[2016-03-28 06:00] VITALS: BP 122/56
--- NOTE | 2016-03-28 07:52 | PN- Housestaff ---
PIYUSH HOANG,ZOE 03/28/16 0752: Subjective Follow-up For: Deconditioning, weakness and fatigue Subjective: Patient seen and examined. She is seen sitting upright at her bedside resting comfortably. She appears to be in no acute distress. She reports feeling "much better" today and admits to feeling embarrassed about the whole situation. She expresses a great amount of concern about her "front door being kicked in" and has concerns about her discharge to home. Otherwise she needs to deny any further weakness or fatigue and complains of only minimal pain in the surgical incision site. Additionally she denies any headache, fever, chills, chest pain, palpitations, shortness of breath, nausea, vomiting, diarrhea. No overnight events reported. Review of Systems Constitutional: Reports: see HPI. Objective Last 24 Hrs of Vital Signs/I&O Vital Signs Date Time Temp Pulse Resp B/P Pulse O2 O2 Flow FiO2 Ox Delivery Rate 03/28 06 99.2 80 20 122/56 96 Room Air 03/27 2234 97.5 68 20 116/60 97 Intake & Output 03/28 1600 03/28 0800 03/28 0000 Intake Total 800 100 110 Output Total Balance 800 100 110 Intake, IV 10 Intake, Oral 800 100 100 Patient 112.945 kg Weight Physical Exam General Appearance: Alert, Cooperative, No Acute Distress Other Physical Findings: General - well developed, well nourished, elderly woman in no acute distress HEENT - NCAT, PERRL, EOMI, anicteric sclera CVS - S1, S2 w/o m/g/r Resp - CTA bilaterally GI - Soft, obese, nontender, nondistended, bowel sounds intact Neuro - Awake and alert, oriented to person/place/time, CN II - XII grossly intact Ext - normal pulses, no cyanosis/clubbing/edema Current Medications: Current Medications Sig/Chandu Start time Last Medication Dose Route Stop Time Status Admin Enoxaparin Sodium 40 MG DAILY 03/26 1019 DCD SC Ibuprofen 400 MG 4 TIMES/DAY PRN 03/26 1030 DCD 03/28 PO 0525 Insulin Aspart 0 TIDAC 03/26 1200 DCD 03/28 SC 1251 Insulin Detemir 15 UNITS QPM 03/26 2200 DCD 03/27 SC 2108 Patient Medication 1 ED .STK-MED ONE 03/28 1407 DC Teaching ED 03/28 1408 Polyethylene Glycol 17 GM DAILY 03/28 1000 DCD 03/28 PO 1049 Senna/Docusate Sodium 2 TAB DAILY 03/28 1000 DCD 03/28 PO 1049 Vitamin A/Vitamin D 1 JAMEY BID 03/28 1140 DCD 03/28 [facility] 1444 Last 24 Hrs of Lab/Jax Results Last 24 Hrs of Labs/Mics: Laboratory Tests 03/28/16 0640: CBC w Diff NO MAN DIFF REQ, RBC 4.47, MCV 82.1, MCH 26.9 L, RDW 16.2 H, MPV 8.8, Gran % 73.7, Lymphocytes % 13.3 L, Monocytes % 8.7, Eosinophils % 3.9, Basophils % 0.4, Absolute Granulocytes 7.0 H, Absolute Lymphocytes 1.3, Absolute Monocytes 0.8 H, Absolute Eosinophils 0.4, Absolute Basophils 0, PUBS MCHC 32.8 L Assessment/Plan Assessment: Patient reports feeling much better today than on admission. She wants to return home, but is concerned as EMS services "kicked in the door". Case management was contacted and reportedly a 'temporary door' is to be put on while the repairs are pending so that patient may return to home. Wound care consult was placed today for the finding of a deep laceration on her buttock region suggestive of a pressure wound sustained from prolonged time on a toilet seat. She is to follow up with the wound care center after discharge. She is to be discharged today with home health services as instruction to follow up with her PCP within two weeks. Problem List: -Weakness/Lethargy/Fatigue -Deconditioning -Opiate intoxication -Open wounds, wound care consult -Recent cholecystectomy -IDDM -Spinal Stenosis Plan: -General Medicine -Elevate Legs -PT evaluation, OOB to chair -Local wound care -Continue Novolog/Levemir -Accuchecks -Pain Pathway/Bowel regimen -Diabetic diet -DVT PPx with lovenox -Full code Problem List: 1. S/P laparoscopic cholecystectomy Pain Ratin Pain Location: None Pain Goal: Pain 4 or less Pain Plan: As noted in plan Tomorrow's Labs & Rationales: None BRYSON CARO MD 03/28/16 1132: Attending MD Review Statement Attending Statement Attending MD Statement: examined this patient, discuss w/resident/PA/MD OPHTHALMOLOGIST, agreed w/resident/PA/MD OPHTHALMOLOGIST, reviewed EMR data (avail), discussed with nursing, discussed with case mgmt, reviewed images, amended to note Attending Assessment/Plan: Patient seen and examined, feels much better overall. She denies any aches or pains. She did have a small BM yesterday. she has pressure wounds on herc buttocks vss. on exam: aox3, nad. cv; s1, s2, rrr. resp; clear abd; soft, nt, bs+ ext; no edema. Laboratory Tests 03/28 0640 Hematology CBC w Diff NO MAN DIFF REQ WBC (4.8 - 10.8 /CUMM) 9.6 RBC (4.20 - 5.40 /CUMM) 4.47 Hgb (12.0 - 16.0 G/DL) 12.0 Hct (37 - 47 %) 36.7 L MCV (81.0 - 99.0 FL) 82.1 MCH (27.0 - 31.0 PG) 26.9 L RDW (11.5 - 14.5 %) 16.2 H Plt Count (130 - 400 /CUMM) 234 MPV (7.4 - 10.4 FL) 8.8 Gran % (42.2 - 75.2 %) 73.7 Lymphocytes % (20.5 - 51.1 %) 13.3 L Monocytes % (1.7 - 9.3 %) 8.7 Eosinophils % (0 - 5 %) 3.9 Basophils % (0.0 - 2.0 %) 0.4 Absolute Granulocytes (1.4 - 6.5 /CUMM) 7.0 H Absolute Lymphocytes (1.2 - 3.4 /CUMM) 1.3 Absolute Monocytes (0.10 - 0.60 /CUMM) 0.8 H Absolute Eosinophils (0.0 - 0.7 /CUMM) 0.4 Absolute Basophils (0.0 - 0.2 /CUMM) 0 PUBS MCHC (33.0 - 37.0 G/DL) 32.8 L A/P: 76 y/o F with pmh sig for recent lap maribell with dr. Bob on 03/23/16, diabetes, obesity and spinal stenosis now admitted with decontioning, unable to ambulate. Patient has been seen by PT and is clear to go home with home PT. She had a small BM yesterday. She absolutely refuses to go to rehabilitation. We have consulted Dr. Rivera for wound care. She would be discharged home with home services today if her home situation is fixed.
[2016-03-28 08:13] LABS: ABSOLUTE BASOPHIL COUNT 0 /CUMM (0.0-0.2); ABSOLUTE EOSINOPHIL COUNT 0.4 /CUMM (0.0-0.7); ABSOLUTE LYMPH COUNT 1.3 /CUMM (1.2-3.4); ABSOLUTE MONOCYTE COUNT 0.8 /CUMM (0.10-0.60); BASOPHIL % 0.4 % (0.0-2.0); EOSINOPHIL % 3.9 % (0-5); GRANULOCYTE % 73.7 % (42.2-75.2); HEMATOCRIT 36.7 % (37-47); MEAN CORPUSCULAR HGB 26.9 PG (27.0-31.0); MEAN CORPUSCULAR HGB CONC 32.8 G/DL (33.0-37.0); MEAN CORPUSCULAR VOLUME 82.1 FL (81.0-99.0); MEAN PLATELET VOLUME 8.8 FL (7.4-10.4); PLATELET COUNT 234 /CUMM (130-400); RBC DISTRIBUTION WIDTH 16.2 % (11.5-14.5); RED BLOOD CELL CT 4.47 /CUMM (4.20-5.40); WHITE BLOOD CELL COUNT 9.6 /CUMM (4.8-10.8)
--- NOTE | 2016-03-28 10:42 | Patient Discharge Instructions ---
Discharge Instructions General Discharge Information Special Instructions: Follow up with your primary care provider within two weeks of discharge. Participate in your home physical therapy. Take your previously prescribed pain medications as directed. Acute Coronary Syndrome Inclusion Criteria At DC or during hospital stay patient has or had the following: ACS DIAGNOSIS No Discharge Core Measures Meds if any: Prescribed or Continued at Discharge Meds if any: NOT Prescribed or Continued at Discharge Congestive Heart Failure Inclusion Criteria At DC or during hospital stay patient has or had the following: CHF DIAGNOSIS No Discharge Core Measures Meds if any: Prescribed or Continued at Discharge Meds if any: NOT Prescribed or Continued at Discharge Cerebrovascular accident Inclusion Criteria At DC or during hospital stay patient has or had the following: CVA/TIA Diagnosis No Discharge Core Measures Meds if any: Prescribed or Continued at Discharge Meds if any: NOT Prescribed or Continued at Discharge Venous thromboembolism Inclusion Criteria VTE Diagnosis No VTE Type NONE VTE Confirmed by (Test) NONE Discharge Core Measures - Per Current guidelines, there needs to be overlap - treatment for the first 5 days of Warfarin therapy. - If discharged on Warfarin prior to 5 days of - overlap therapy, the patient will need to be - assessed for post discharge needs including - *Post discharge parental anticoagulation - *Warfarin and/or parental anticoagulation education - *Follow up date to check INR post discharge At least 5 days overlap therapy as Inpatient No Meds if any: Prescribed or Continued at Discharge Note: Overlap Therapy is Warfarin and Anticoagulant Meds if any: NOT Prescribed or Continued at Discharge
--- NOTE | 2016-03-28 11:19 | NUR ---
PHYSICAL THERAPY: PT INDEP AND SAFE IN ALL FUNCTIONAL MOBILTY AND GAIT, HOLD ON FURTHER PT INTERVENTION AT THIS TIME, PT REFUSING TO PRACTICE STAIRS WITH THERAPIST AT THIS TIME.
[2016-03-28] MEDS ORDERED: LEVEMIR100 UNIT/1 SC (11:44)
--- NOTE | 2016-03-28 13:51 | NUR ---
WOUND CARE: REQUESTED BY NURSING STAFF TO EVALUATE PT FOR SKIN ALTERATION PRESENT ON ADMISSION - PT KNOWN TO THIS HAIRSPRING I INSPECTOR OFFERED HX - STATED SHE HAD HAD MENTAL STATUS CHANGES FOLLOWING SURGERY, AND WAS UNCONSCIOUS FOR AN UKNOWN AMOUNT OF TIME, IN WHICH SHE HAD WOKEN UP SITTING ON THE TOILET - PER THE PTS RECOLLECTION, SHE BELIEVES SHE MAY HAVE BEEN SITTING ON THE TOILET FOR UP TO 48 HOURS - UPON ASSESSMENT, PT IS NOTED WITH AN EVLOVING DEEP TISSUE INJURY TO THE BILATERAL ISCHIUM EXTENDING CENTRALLY TOWARDS THE INNER THIGH / LABIAL JUNCTION - DARK PURPLE / VIOLACEOUS HUE WITH BREAKDOWN CENTALLY DRY YELLOW SLOUGH AND PERIWOUND ERYTHEMA - RIGHT 15 X 2.5 CM AND LEFT 10 X 2 AND CIRCULAR LESION 1X1 TO THE LEFT BUTTOCKS - C/O DISCOMFORT TO AREA - PT OBSERVED INITIALLY SITTING POSITION - EDUCATED PT RE: RISKS OF OFFLOADING, NEED FOR REPOSITION, ETC - STATED AN UNDERSTANDING IMPRESSION: EVOLVING DTI POA KENDRA ISCHIUM RECOMMENDATION: APPLY VITAMIN A+D OINTMENT DAILY - F/U AT WOUND CARE CENTER 1 WEEK POST DC WITH DR NAPOLES - CURRENTLY ON SIZE TUBBS MATTRESS - PT EDUCATED RE NEED FOR STRICT OFFLOADING AND SIDELYING POSITION WIB - DIETARY EVALUATION PLEASE
[2016-03-28] MEDS ORDERED: VITAMIN A & D56.7 GM TOP (14:31)
[2016-03-28] MEDS ORDERED: SENNA PLUS TAB1 EACH PO (14:31)
[2016-03-28] MEDS ORDERED: MIRALAX119 GM PO (14:31)
--- NOTE | 2016-03-28 14:32 | Cons- Wound Care ---
General Information and HPI Consulting Request Date of Consult: 03/28/16 Requested By: BRYSON CARO MD Reason for Consult: Bilateral buttock deep tissue injury present on admission History of Present Illness: Patient is 76-year-old diabetic status post laparoscopic cholecystectomy who is admitted because of change in mental status and difficulty ambulating. Patient underwent colonoscopic cholecystectomy on March 23 was discharged home thereafter. She reports having taken Percocet and became lethargic. She was unable to move from her toilet seat and required assistance from emergency services. She subsequently improved to the point where she is independently ambulatory. She was noted to have bilateral pressure injury ulcers along both buttocks and upper thighs present on admission Allergies/Medications Allergies: Coded Allergies: NO KNOWN ALLERGIES (10/14/15) Home Med List: Insulin Aspart (Novolog) 100 UNIT/ML VIAL 16-20 UNITS SC TIDAC DM (Reported) Insulin Detemir (Levemir) 100 UNIT/ML VIAL 30 UNIT SC QPM DM (Reported) Insulin Detemir (Levemir) 100 UNIT/ML VIAL 20 UNITS SC QHS DIABETES Oxycodone HCl/Acetaminophen (Percocet 5-325 MG Tablet) 5 MG-325 MG TABLET 1-2 TAB PO Q4-6 PRN PAIN Review of Systems Review of Systems: Noncontributory Past History Travel History Traveled to [place] past 21 day No Medical History Blood Transfusion Hx: No Neurological: NONE EENT: NONE Cardiovascular: NONE Respiratory: NONE Gastrointestinal: NONE Hepatic: NONE Renal: NONE Musculoskeletal: spinal stenosis Psychiatric: NONE Endocrine: diabetes, obesity Blood Disorders: NONE Cancer(s): NONE POWER OPERATOR/Reproductive: NONE Surgical History Surgical History: cholecystectomy Psychosocial History Where Do You Live? Home Smoking Status: Never Smoked Exam & Diagnostic Data Vital Signs and I&O Vital Signs Result Date Time Pulse Ox 96 03/28 0500 B/P 122/56 03/28 0500 O2 Delivery Room Air 03/28 599 Temp 99.2 03/28 0500 Pulse 80 03/28 0500 Resp 20 03/28 0600 Intake & Output 03/28 0000 02/05 1600 03/27 0800 Intake Total 110 450 Output Total 400 Balance 110 -400 450 Intake, IV 10 Intake, Oral 100 450 Number 1 Bowel Movements Output, Urine 400 Exam of the posterior buttock inner thigh shows there to be a long linear area of deep tissue injury measuring approximately 12-14 cm x 1 cm a similar ulcers along the left posterior buttock and thigh. There is a small partial thickness ulcer of the left buttock measuring approximately 1 x 1 cm. Is no significant periwound erythema undermining or sinus tracking Assessment/Plan Impression/Plan: 76-year-old woman with history of diabetes status post cholecystectomy had an extensive period of unrelieved pressure due to inability to stand and having remain seated on the toilet seat for an extended period time. She has several areas of deep tissue injury. Recommendation was made for a barrier cream she's been instructed to obtain an offloading gel cushion and to avoid supine sleep. She'll be seen in follow-up in the wound center next week Consult Acknowledgment - Thank you for your consult request.
--- NOTE | 2016-03-28 15:06 | PN- General Surgery ---
Surgical Brief Attending Note Brief Attending Note: doing well. f/u with me as arranged.
--- NOTE | 2016-03-28 20:28 | Discharge Summary ---
Visit Information Visit Dates Admission Date: 03/26/16 Discharge Date: 03/28/16 Hospital Course Course Attending Physician: BRYSON CARO MD Primary Care Physician: SADA HOANG,UTE aHssan Consulting Request: Consulting Specialty: General Surgery Hospital Course: 76-year-old woman with past medical history no skin for recent laparoscopic cholecystectomy, spinal stenosis, recurrent cellulitis, and IDDM seen for evaluation of weakness/lethargy/fatigue with inability to ambulate. She reportedly had a laparoscopic cholecystectomy by Dr. Finn on 03/23/16 to home the day after. She reports feeling profoundly fatigued while at home. She reports taking "two Percocet" the night prior to admission and does not recall events after this. Home nursing services came to the patient's home and called EMS services when she did not come to the door. Her front door was reportedly "kicked in" and patient was found sitting on the toilet seat unable to get up. Patient was brought to the [place] ED for evaluation. Physical deconditioning/weakness/fatigue status post laparoscopic cholecystectomy: Patient was admitted to the general medicine floor and followed off antibiotics. She was continued on her previous home medications. Physical therapy evaluation determined that patient was in assist of 1 and may be discharged home with physical therapy. Wound care consult placed determined that local wound care with A&D ointment should be applied to the wound sustained on the patient's buttock from the toilet seat. Case management arranged for patient to have a "temporary door placed" and to be discharged home. She is to follow-up with Dr. Cavanaugh as an outpatient for further care. Opiate narcotics were held on discharge. Allergies: Coded Allergies: NO KNOWN ALLERGIES (10/14/15) Disposition Summary Disposition Principal Diagnosis: Physical deconditioning Additional Diagnosis: Status post laparoscopic cholecystectomy Discharge Disposition: home health services Discharge Instructions General Discharge Information Code Status: Full Code Patient's Diet: Diabetic diet Patient's Activity: Return to full activity as tolerated. Follow-Up Instructions/Appts: Follow up with your primary care provider within two weeks of discharge. Participate in your home physical therapy. Take your previously prescribed pain medications as directed. Follow-up with Dr. Betancourt in the wound care center for further evaluation. Medications at Discharge Discharge Medications: Stop taking the following medications: Insulin Detemir (Levemir) 100 UNIT/ML VIAL Inject into fatty tissue Every night Oxycodone HCl/Acetaminophen (Percocet 5-325 MG Tablet) 5 MG-325 MG TABLET ORAL EVERY 4-6 HOURS as needed for PAIN Qty = 30 Continue taking these medications: Insulin Aspart (Novolog) 100 UNIT/ML VIAL 16-20 Units Inject into fatty tissue 3 TIMES DAILY BEFORE MEALS Comments: Last Taken: 03/27/16 Time: 10PM Start taking the following new medications: Polyethylene Glycol 3350 (Miralax) 17 GRAM/DOSE POWDER 17 Gram ORAL DAILY Days = 30 No Refills Comments: Last Taken: 03/28/16 Time: 9AM Sennosides/Docusate Sodium (Senna Plus Tablet) 8.6 MG-50 MG TABLET 2 Tablet ORAL DAILY Days = 30 No Refills Comments: Last Taken: 03/28/16 Time: 9AM Vitamin A & D (Vitamin A & D Ointment) 56.7 GM OINT...G. 1 Application On the skin TWICE DAILY Qty = 1 No Refills Comments: Last Taken: 03/28/16 Time: 3PM Insulin Detemir (Levemir) 100 UNIT/ML VIAL 20 Units Inject into fatty tissue TAKE AT BEDTIME Days = 30 No Refills Comments: Last Taken: 03/27/16 Time: 10PM Copies To: DONY HOANG,ALEXANDRA Carrasco; SADA HOANG,UTE FINN MD,ARIANA Martin
== END 2016-03-28 15:20 | disposition home health service (06) | DRG 552 ==
LOC: ENRESERVTM → ENRESERVDT → ERH 15:15 → ERHI 18:55 → 2NA 03-26 10:05 → ERHI 03-26 10:05 → EDBEDREQ 03-26 10:34 → EDBEDREQDT 03-26 10:34 → EDBEDREQTM 03-26 10:34 → ERHI 03-26 11:25 → 2NA 03-26 12:51
PROVIDERS: Emergency Medicine; Student in an Organized Health Care Education/Training Program; ADMIT Hospitalist
DX: M48.00 Spinal stenosis, site unspecified (principal); Z68.41 Body mass index [BMI] 40.0-44.9, adult; K62.5 Hemorrhage of anus and rectum; E11.9 Type 2 diabetes mellitus without complications; E66.9 Obesity, unspecified; R26.2 Difficulty in walking, not elsewhere classified; Z79.4 Long term (current) use of insulin; R53.1 Weakness
CPT/HCPCS: 2NAP; 6030; 87070; 87075; 36415; 81001; 82436; 87071; 87147; 88304; 88305; 96372; 97116-GO; 97162-GP; 97530-GP; G0378; G8978-GP; G8979-GP; J0131; J0690; J1644; J1650

== ENCOUNTER 2017-10-02 09:36 | Emergency (ER) | payer OTHER ==
[~2017-10-02] VITALS: Ht 162.6 cm; Wt 112.5 kg
[~2017-10-02 09:36] MED LIST changes: +DOXYCYCLINE HY100 M4 PO; +MIRALAX119 GM PO; +SENNA PLUS TAB1 EACH PO; +VITAMIN A & D56.7 GM TOP
[2017-10-02 09:42] VITALS: BP 121/67
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
--- NOTE | 2017-10-02 10:44 | RADIOLOGY REPORT ---
EXAMINATION: XR CHEST CLINICAL INFORMATION: Pedal edema. Rule out CHF, effusion. COMPARISON: Chest and left rib films dated 12/02/2014. TECHNIQUE: 2 views of the chest were obtained on 3 images. FINDINGS: The cardiomediastinal silhouette is within normal limits in size. Lungs bilaterally are symmetrically expanded and clear. No vascular congestion, pulmonary edema, focal consolidation, effusion or pneumothorax is seen. Mild spurring is seen throughout the mid and lower thoracic spine. Osteopenia is noted. IMPRESSION: No acute cardiopulmonary process seen. Specifically, no evidence of CHF or effusion.
[2017-10-02 10:53] LABS: ABSOLUTE BASOPHIL COUNT 0.1 /CUMM (0.0-0.2); ABSOLUTE EOSINOPHIL COUNT 0.1 /CUMM (0.0-0.7); ABSOLUTE GRANULOCYTE CT 5.9 /CUMM (1.4-6.5); ABSOLUTE LYMPH COUNT 1.9 /CUMM (1.2-3.4); ABSOLUTE MONOCYTE COUNT 0.5 /CUMM (0.10-0.60); EOSINOPHIL % 1.4 % (0-5); GRANULOCYTE % 69.3 % (42.2-75.2); HEMATOCRIT 36.4 % (37-47); MEAN CORPUSCULAR HGB 28.2 PG (27.0-31.0); MEAN CORPUSCULAR VOLUME 82.8 FL (81.0-99.0); MEAN PLATELET VOLUME 8.3 FL (7.4-10.4); PLATELET COUNT 230 /CUMM (130-400); RBC DISTRIBUTION WIDTH 14.4 % (11.5-14.5); WHITE BLOOD CELL COUNT 8.6 /CUMM (4.8-10.8)
[2017-10-02] MEDS ORDERED: LASIX20 M1 PO (11:58)
== END 2017-10-02 12:11 ==
LOC: ERH 09:36
PROVIDERS: Physician Assistant
DX: R60.0 Localized edema (principal); E11.9 Type 2 diabetes mellitus without complications; E78.5 Hyperlipidemia, unspecified; E66.9 Obesity, unspecified
CPT/HCPCS: 71046; 93005; 93010